=== PATIENT | male | born 1980 | race Caucasian/White ===

== ENCOUNTER 2023-08-07 02:21 | Emergency (ER) | payer MEDICARE, SELFPAY ==
[2023-08-07 02:26] VITALS: BP 159/90; PULSE 69; RESP 18; TEMP 36.7; O2SAT 99; BMI 29.0
--- NOTE | 2023-08-07 02:38 | W.ED.DENTAL ---
HPI - Dental/Oral General: Chief complaint: Dental/Oral Stated complaint: Tooth Ache Time Seen by Provider: 08/07/23 02:28 History of Present Illness: 43-year-old male presents emergency department complaints of right upper dental pain. He states the pain has been 9 out of 10 over the last 2 days. He states it hurts to eat. He states that he is from [facility] and will make an appointment tomorrow at [facility]. He states he wanted to have the dental caries and tooth pain evaluated to make sure there is not an abscess or an infection. He denies fevers chills or night sweats. He denies trismus. He states that he has not taken anything for the pain. Review of Systems General: Reports: 10 or more systems reviewed and unremarkable except in HPI and below ENMT: Reports: dental pain Physical Exam Narrative: EXAM NARRATIVE: Constitutional: the patient appears well nourished and of normal development. Vital signs as documented. No acute distress at present. Alert and oriented-to person, place, time and situation. Head, eyes, ears, nose, mouth, throat: Normocephalic, atraumatic. Pupils-equal, round, reactive to light. No scleral icterus. Normal-appearing external ears. Normal appearing nasal turbinates, no drainage. No obvious oral lesions, posterior oropharynx without erythema or exudates. Poor dentition with multiple dental caries. There is an obvious dental caries to the number 4 tooth--right upper Neck: Supple, trachea is midline, no lymphadenopathy, no jugular venous distension, thyromegaly, or carotid bruits. Carotid upstrokes are brisk bilaterally. Lungs: clear to auscultation to all lung zee. Symmetrical rise and fall of chest, no obvious signs of increased work of breathing at present. Cardiac: Regular rate and rhythm, positive S1, S2. No murmurs, rubs or gallops that I can appreciate Abdomen: Soft, non-tender to palpation, normal active bowel sounds to all quadrants. No palpable masses, no organomegaly and abdominal bruits. Extremities: 2+ pulses in the upper extremities that are equal bilaterally, 2+ pulses in the lower extremities that are equal bilaterally. Non-edematous. Moves all extremities well, sensation to all extremities are noted. Skin: Warm, dry, intact. Course Vital Signs: Vital signs: Vital Signs Temperature 98.0 F 08/07/23 02:26 Pulse Rate 69 08/07/23 02:26 Respiratory Rate 18 08/07/23 02:26 Blood Pressure 159/90 08/07/23 02:26 Pulse Oximetry 99 08/07/23 02:26 Oxygen Delivery Me thod Room Air 08/07/23 02:26 MDM - Dental/Oral Medical Decision Making Physical exam completed, there is no obvious gingivitis or periapical abscess. I will provide the patient viscous lidocaine topically and have him follow-up with his dentist as planned. No radiology studies performed this visit Discharge Plan Discharge Patient Disposition: Home Clinical Impression: Dental caries, Toothache Condition: Stable Prescriptions: New naproxen 500 mg tablet 500 mg PO Q12H PRN (Reason: pain) Qty: 14 0RF Discharge Orders: Discharge ED (Routine); Ordered 08/07/23 Ordered By: Michael Carmona Discharge Diet: Advance as tolerated Discharge Activity: Resume usual activity Patient Instructions: Opioid Safety, Pain Management Activity Restrictions/Additional Instructions: Activity Restrictions/Additional Instructions: Thank you for choosing [facility] for your healthcare needs today. Please realize that you were seen in the Emergency Department and that we are providing you with an emergency medical screening exam and this may not be complete and all inclusive of all the testing and or medical work-up that you may need to determine your ailment or severity of your illness. It is very important that you follow-up as instructed with your Primary care provider or Specialist for additional evaluation and to discuss your medical treatment plan. You may return to the Emergency Department should you have concerns or if your condition changes or worsens in any way. Coding Level of Care Code ED Pca for Luis Gipson
[2023-08-07] MEDS: lidocaine 2% viscous 15 mL UDC 5 ML TOPICAL (02:54)
== END 2023-08-07 03:25 | disposition home or self-care (01) ==
PROVIDERS: Emergency Provider Internal Medicine
DX: K02.9 Dental caries, unspecified (principal)
CPT/HCPCS: 99283

== ENCOUNTER → 2024-08-12 13:33 | Outpatient (BNVA) | payer MEDICARE, SELFPAY | PROVIDERS: PCP Family Medicine; Visit Provider Internal Medicine | DX: R07.9 Chest pain, unspecified (principal); I10 Essential (primary) hypertension | CPT/HCPCS: 93005; 99204 ==

== ENCOUNTER 2024-08-13 07:57 | Outpatient (CLI) | payer MEDICARE, SELFPAY ==
[2024-08-13 08:57] LABS: Chol HDL Ratio 4.24 mg/dL (1.0-5.00); Cholesterol 195 mg/dL (0-200); HDL Cholesterol 46 mg/dL (60-100); LDL Cholesterol Calculated 135 mg/dL (50-129); LDL HDL Ratio 2.93 RATIO (0.00-3.22); Triglycerides 69 mg/dL (0-150)
== END 2024-08-13 07:58 | disposition home or self-care (01) ==
LOC: LAB 08:01
PROVIDERS: PCP Family Medicine; Visit Provider Internal Medicine
DX: I10 Essential (primary) hypertension (principal)
CPT/HCPCS: 36415; 80061

== ENCOUNTER 2024-09-08 16:52 | Outpatient (CLI) | payer MEDICARE, SELFPAY ==
--- NOTE | 2024-09-08 17:00 | CT_ITS ---
WS: [id number] CT CALCIUM SCORE REASON FOR VISIT: hypertension; Coronary artery disease risk assessment COMPARISON: None TECHNIQUE: Noncontrast coronary CT in combination with quantitative analysis performed on a separate workstation were used to determine CACS (Agatston score) TOTAL EXAM DOSE: 56.67 mGy.cm ECG GATING: Prospective SCAN RANGE: Pulmonary artery bifurcation to Inferior aspect of heart COMPLICATIONS: None FINDINGS: Technical Quality/Examination Quality: Good Limitaiton: None OVERALL SCORES Total calcium score: 0 Total volume score: 2 mm3 Percentile: 0 to 25% ARTERY SCORES Left main coronary artery: 0 Left anterior descending artery: 0 Left circumflex artery: 0 Right coronary artery: 0 OTHER FINDINGS: Mediastinum: Normal. Thoracic aorta: Normal. Lungs: Small pulmonary nodule LEFT upper lobe anteriorly measuring 5 mm. Recommend 12-month follow-up . Additional tiny perifissural nodule LEFT lung measuring 4 mm. Subpleural nodule in the lingula zay uring 3 mm. Tiny subpleural nodule LEFT upper lobe. Only a small portion of the RIGHT lung is visuali zed. Recommend further evaluation with chest CT. Upper Abdomen: Tiny esophageal hiatal hernia. MINIMAL: 1-10 MILD: 11-100 MODERATE: 101-400 SEVERE:>400 CT/CT heart w calcium score 67169 IMPRESSION: 1. Total calcium score of 0 is between the 0 and 25th percentile for males bet ween the ages of 40 and 44. 2. No evidence of CAD: 0 calcium score 3. Several subcentimeter pulmonary nodules largest LEFT upper lobe measuring 5 mm. Only a small portion of the lungs visualized on this study. Recommend ches t CT in further baseline evaluation. GRADING OF CORONARY ARTERY DISEASE (BASED ON TOTAL CALCIUM SCORE) NO EVIDENCE OF CAD: 0 calcium score
== END 2024-09-08 16:53 | disposition home or self-care (01) ==
LOC: RAD 16:56
PROVIDERS: PCP Family Medicine; Visit Provider Internal Medicine
DX: Z13.6 Encounter for screening for cardiovascular disorders (principal); I10 Essential (primary) hypertension; R91.8 Other nonspecific abnormal finding of lung field; K44.9 Diaphragmatic hernia without obstruction or gangrene
CPT/HCPCS: 75571

== ENCOUNTER 2025-01-08 11:54 | Outpatient (CLI) | payer MEDICARE, SELFPAY ==
--- NOTE | 2025-01-08 12:00 | CT_ITS ---
WS: [id number] CT chest wo con [id number] HISTORY: MULTIPLE LUNG NODULES TECHNIQUE: Axial imaging performed through the thorax. Coronal and sagittal reformats are submitted. All CT scans at [facility] use at least one of these dose optimization techniques: automated exposure control; mA and/or kV adjustment per patient size (includes targeted exams where dose is matched to clinical indication); or iterative reconstruction. CONTRAST: None DLP: 411.26 mGy.cm COMPARISON: CT 09/08/2024. Study is compromised by poor inspiratory effort and breathing motion artifact. Lungs and central airway: 4 mm noncalcified LEFT upper lobe nodule, image 24 series 4. 4 mm LEFT perifissural nodule. Subpleural nodule 3 mm RIGHT upper lobe. Pleura: Normal. No pleural effusion. Heart and pericardium: Normal size heart with no pericardial effusion. Mediastinum and scott: No mediastinum or hilar adenopathy. Vessels: Normal size aortic and pulmonary artery. No coronary artery calcifications. Chest wall and lower neck: No soft tissue masses. Upper abdomen: Normal. Osseous structures: No destructive process. CT/CT chest wo con [id number] IMPRESSION: 1. Small pulmonary nodules as described above. The largest is 4 mm in the LEFT upper lobe. For low risk patient no further follow-up necessary. With history of smoking recommend follow-up chest CT in 12 months. 2. No mediastinal or hilar adenopathy.
== END 2025-01-08 11:55 | disposition home or self-care (01) ==
LOC: RAD 11:56
PROVIDERS: PCP Family Medicine; Visit Provider Family Medicine
DX: R91.8 Other nonspecific abnormal finding of lung field (principal)
CPT/HCPCS: 71250